=== PATIENT | female | born 1960 | race Two or more races ===

== ENCOUNTER 2020-04-20 08:24 | Day surgery (SDC) | payer OTHER ==
[~2020-04-20 08:24] MED LIST: ACID REDUCER20 M1 PO; CELEBREX200MG PO; COZAAR25 MG PO; GLIMEPIRIDE2 MG; MILLIPRED5 MG PO; ORENCIA125 MG/1 M; XOPENEX CO1.25 MG/0.
[2020-04-20] MEDS ORDERED: IBU400 MG PO (11:44)
== END 2020-04-20 14:45 | disposition home or self-care (01) ==
LOC: CIR.AMB 08:24 → EDSEX 08:24 → CIR.AMB 10:00
PROVIDERS: ATTEND Obstetrics & Gynecology Gynecology
DX: N84.0 Polyp of corpus uteri (principal); Z20.828 Contact with and (suspected) exposure to other viral communicable diseases